=== PATIENT | female | born 1995 ===

== ENCOUNTER 2017-02-28 16:49 | Emergency (ER) | payer BC ==
[2017-02-28 17:06] VITALS: BP 131/72; PULSE 100; RESP 18; TEMP 98.8; O2SAT 100
[2017-02-28] MEDS ORDERED: Albuterol-Ipratrop 3 mg / 0.5 (3 ml) UD INH STA ×2 (17:34→18:21)
--- NOTE | 2017-02-28 17:39 | ED PDOC ---
HPI: CCC, URI, Sore Throat Time Seen by Provider: 02/28/17 17:30 Chief Complaint (Nursing): Cough, Cold, Congestion Chief Complaint (Provider): Cough History Per: Patient History/Exam Limitations: no limitations Onset/Duration Of Symptoms: Days (x 3 weeks) Current Symptoms Are (Timing): Still Present Associated Symptoms: Fever, Cough Additional Complaint(s): Inga is a 21 y/o female with a past medical history of asthma, who presents to the ED complaining of a cough associated with shortness of breath and fatigue, worsening for 3 weeks. Patient now reports some chest pain while coughing. Also had a fever last , now improved. Patient reports history of walking pneumonia in the past. Taking Theraflu and using albuterol inhaler without relief. PMD: Venu Song MD Past Medical History Reviewed: Historical Data, Nursing Documentation, Vital Signs Vital Signs: Last Vital Signs Temp 98.8 F 02/28/17 17:04 Pulse 100 H 02/28/17 17:04 Resp 18 02/28/17 17:04 BP 131/72 02/28/17 17:04 Pulse Ox 100 02/28/17 18:49 - Medical History PMH: Anemia, Asthma - Family History Family History: States: Unknown Family Hx - Social History Current smoker - smoking cessation education provided: No Alcohol: None Drugs: Denies - Allergies Allergies/Adverse Reactions: Allergies Allergy/AdvReac Type Severity Reaction Status Date / Time No Known Allergies Allergy Verified 02/28/17 17:03 Review of Systems ROS Statement: Except As Marked, All Systems Reviewed And Found Negative Constitutional: Positive for: Other (Difficulty breathing, fatigue). Negative for: Fever Respiratory: Positive for: Cough, Shortness of Breath Physical Exam - Reviewed Nursing Documentation Reviewed: Yes Vital Signs Reviewed: Yes - Physical Exam Appears: Positive for: Non-toxic, No Acute Distress Head Exam: Positive for: ATRAUMATIC, NORMAL INSPECTION, NORMOCEPHALIC Skin: Positive for: Normal Color, Warm, Dry Eye Exam: Positive for: EOMI, Normal appearance, PERRL Neck: Positive for: Normal, Painless ROM, Supple Cardiovascular/Chest: Positive for: Regular Rate, Rhythm. Negative for: Murmur Respiratory: Positive for: Rhonchi (bilaterally), Other (Bronchospastic cough noted). Negative for: Respiratory Distress Back: Positive for: Normal Inspection. Negative for: Vertebral Tenderness Extremity: Positive for: Normal ROM. Negative for: Pedal Edema, Deformity Neurologic/Psych: Positive for: Alert, Oriented - ECG O2 Sat by Pulse Oximetry: 100 (RA) Pulse Ox Interpretation: Normal - Progress ED Course And Treament: 18:21. Ordered second Duoneb treatment with Peak Flow pre/post. Patient vomiting in the ED, states that she is in pain and feels chest pressure. Complaining the duoneb treatment worsened her condition, and began yelling at staff. Patient able to talk in full sentences. Offered Chest X-Ray and naproxen, patient refused. Requesting to see different provider. Patient left prior to being evaluated by Dr. See. Medical Decision Making Medical Decision Making: Time: 17:34 Initial Plan: --Duoneb 3 ml INH --Peak Flow pre/post treatment --Prednisone 60 mg PO --Pending reevaluation Scribe Attestation: Documented by Betsy Singh, acting as a scribe for John Guerrero PA-C Provider Scribe Attestation: All medical record entries made by the Scribe were at my direction and personally dictated by me. I have reviewed the chart and agree that the record accurately reflects my personal performance of the history, physical exam, medical decision making, and the department course for this patient. I have also personally directed, reviewed, and agree with the discharge instructions and disposition. Disposition - Clinical Impression Clinical Impression: Cough - Patient ED Disposition Is Patient to be Admitted: No - Disposition Disposition: Routine/Home Disposition Time: 18:52 Condition: FAIR Forms: [employer] (Polish)
[2017-02-28] MEDS ORDERED: Albuterol-Ipratrop 3 mg / 0.5 (3 ml) UD ONE ×2 (18:03→18:08)
[2017-02-28] MEDS ORDERED: Naproxen 500 MG TAB PO STA (18:19)
--- NOTE | 2017-02-28 18:49 | ED PDOC ---
- ECG O2 Sat by Pulse Oximetry: 100 (RA) Medical Decision Making Medical Decision Making: Pt transferred from holding area because she did not want to be seen by PA. Pt reports coughing X 2 weeks, has h/o asthma, used inhaler at home with relief. PE revealed minimal wheezing. Discussed with patient the plan for MgSO4 and repeat Duonebs. Pt became angry and agitated (similar to how she acted in holding area), refusing further treatment and demanding to leave. Disposition - Clinical Impression Clinical Impression: Cough - POA Present On Arrival: None - Disposition Disposition: Left W/O Treatment Disposition Time: 18:50 Condition: UNKNOWN Forms: [facility] (Wolof)
== END 2017-02-28 18:52 | disposition left against medical advice (07) ==
LOC: H.ER 16:49
DX: J45.909 Unspecified asthma, uncomplicated (principal)